=== PATIENT | female | born 1985 ===

== ENCOUNTER 2023-02-19 12:27 | Inpatient (IN) | payer OTHER ==
[~2023-02-19] VITALS: Ht 152.4 cm; Wt 70.3 kg
[2023-03-03] MEDS ORDERED: PRENATAL CAPLE1 EAC1 PO (07:16)
[2023-03-03] MEDS ORDERED: ZOLOFT50 MG PO (07:16)
[2023-03-03 08:02] LABS: HEMATOCRIT 34.1 % (36.0-45.00); HEMOGLOBIN 11.3 g/dL (12.0-15.00); MEAN CELL VOLUME 88.6 fL (80.00-100.00); MEAN CORPUSCULAR HEMOGLOBIN 29.3 pg (27.00-32.0); MEAN CORPUSCULAR HGB CONC 33.1 g/dl (32.0-36.0); PLATELET COUNT 247 K/uL (150-450); RED BLOOD COUNT 3.85 M/uL (4.00-6.00); RED CELL DISTRIBUTION WIDTH 15.6 % (11.5-14.5)
[2023-03-03 08:32] LABS: INR < 0.93; PARTIAL THROMBOPLASTIN TIME 26.3 SECONDS (22.0-34.0); PROTHROMBIN TIME 9.6 SECONDS (9.0-11.5)
[2023-03-03 08:48] LABS: ALBUMIN 2.6 gm/dL (3.4-5.0); BILIRUBIN TOTAL 0.17 mg/dL (0.3-1.2); CALCIUM 8.5 mg/dL (8.5-10.1); CREATININE SERUM 0.62 mg/dL (0.55-1.02); GFR 106.61; GLOBULINA 3.5 G/DL (2.4-3.5); POTASSIUM 4.14 mEq/L (3.5-5.1); TOTAL PROTEIN 6.1 gm/dL (6.4-8.2)
[2023-03-03 22:20] LABS: ABG PH 7.339 (7.35-7.45); ABG pCO2 31.8 mmHg (35-45); BASE EXCESS -7.7 mmol/l; BICARBONATE 16.8 mmol/l (23-25); SaO2 64.6 %; Tco2 17.8 mmol/l
[2023-03-03 22:21] LABS: ABG PO2 36.8 mmHg (80-100); o2 21 %
[2023-03-04 10:03] LABS: HEMATOCRIT 31.6 % (36.0-45.00); HEMOGLOBIN 10.9 g/dL (12.0-15.00); MEAN CORPUSCULAR HEMOGLOBIN 30.2 pg (27.00-32.0); MEAN CORPUSCULAR HGB CONC 34.7 g/dl (32.0-36.0); PLATELET COUNT 231 K/uL (150-450); RED BLOOD COUNT 3.63 M/uL (4.00-6.00); RED CELL DISTRIBUTION WIDTH 15.7 % (11.5-14.5)
== END 2023-03-06 14:04 | disposition home or self-care (01) | DRG 788 ==
LOC: OB/GYN → LDR 03-03 05:22 → O/R 03-03 21:34 → OB/GYN 03-03 22:10
PROVIDERS: ADMIT Obstetrics & Gynecology; ATTEND Obstetrics & Gynecology
PROC: 4A1HXCZ Monitoring of Products of Conception, Cardiac Rate, External Approach (ICD-10-PCS; 2023-03-03)
PROC: 10D00Z1 Extraction of Products of Conception, Low, Open Approach (ICD-10-PCS; principal; 2023-03-03 18:40)
DX: O33.8 Maternal care for disproportion of other origin (principal); Z3A.39 39 weeks gestation of pregnancy; Z37.0 Single live birth; Z20.822 Contact with and (suspected) exposure to COVID-19

== ENCOUNTER 2023-03-02 08:42 | Outpatient (CLI) | payer OTHER ==
[2023-03-03] MEDS ORDERED: PRENATAL CAPLE1 EAC1 PO (07:16)
[2023-03-03] MEDS ORDERED: ZOLOFT50 MG PO (07:16)
== END 2023-03-02 09:40 | disposition home or self-care (01) ==
LOC: NST 08:42
PROVIDERS: ATTEND Obstetrics & Gynecology
DX: Z34.83 Encounter for supervision of other normal pregnancy, third trimester (principal)